=== PATIENT | male | born 2000 | race Two or more races ===

== ENCOUNTER 2021-06-16 21:43 | Emergency (ER) | payer SELFPAY ==
[~2021-06-16] VITALS: Ht 165.1 cm; Wt 71.0 kg
[2021-06-16 21:47] VITALS: BP 141/72
[2021-06-16] MEDS ORDERED: IBUP-1007 PO (22:08)
[2021-06-16] MEDS ORDERED: CYCL5TAB PO (22:08)
--- NOTE | 2021-06-16 22:08 | PHYS DOC ---
Past Medical History Past Surgical History: No Surgical History Smoking Status: Never Smoker Alcohol Use: Occasionally General Adult EDM: Chief Complaint: BACK PAIN OR INJURY HPI: HPI: Patient is a 20 year old male who presents with 5 days of right flank pain only with movement. Patient states he does not remember injury or any heavy lifting. He denies chest pain, shortness of breath, fever, cough, abdominal pain, nausea, vomiting, diarrhea, trauma. Rates the pain a 5 out of 10. He states he has been taking Tylenol for not at home. No other past medical history. Review of Systems: Review of Systems: Constitutional: Denies fever or chills. [] Eyes: Denies change in visual acuity. [] HENT: Denies nasal congestion or sore throat. [] Respiratory: Denies cough or shortness of breath. [] Cardiovascular: Denies chest pain or edema. [] GI: Denies abdominal pain, nausea, vomiting, bloody stools or diarrhea. [] : Denies dysuria. [] Musculoskeletal: +Right flank back pain or denies joint pain. [] Integument: Denies rash. [] Neurologic: Denies headache, focal weakness or sensory changes. [] Endocrine: Denies polyuria or polydipsia. [] Lymphatic: Denies swollen glands. [] Psychiatric: Denies depression or anxiety. [] Heart Score: C/O Chest Pain: No Allergies: Allergies: Allergies Coded Allergies Type Severity Reaction Last Updated Verified No Known Drug Allergies 06/16/21 No Physical Exam: PE: Constitutional: Well developed, well nourished, no acute distress, non-toxic appearance. [] HENT: Normocephalic, atraumatic, bilateral external ears normal, oropharynx moist, no oral exudates, nose normal. [] Eyes: PERRLA, EOMI, conjunctiva normal, no discharge. [] Neck: Normal range of motion, no tenderness, supple, no stridor. [] Cardiovascular:Heart rate regular rhythm, no murmur [] Lungs & Thorax: Bilateral breath sounds clear to auscultation [] Abdomen: Bowel sounds normal, soft, no tenderness, no masses, no pulsatile masses. [] Skin: Warm, dry, no erythema, no rash. [] Back: No tenderness, no CVA tenderness. Right flank pain with movement [] Extremities: No tenderness, no cyanosis, no clubbing, ROM intact, no edema. [] Neurologic: Alert and oriented X 3, normal motor function, normal sensory function, no focal deficits noted. [] Psychologic: Affect normal, judgement normal, mood normal. [] Current Patient Data: Vital Signs: Vital Signs Date Time Temp Pulse Resp B/P (MAP) Pulse Ox O2 Delivery O2 Flow Rate FiO2 06/16/21 21:47 98.7 78 16 141/72 (95) 96 Room Air 98.7 EKG: EKG: [] Radiology/Procedures: Radiology/Procedures: [] Course & Med Decision Making: Course & Med Decision Making Pertinent Labs and Imaging studies reviewed. (See chart for details) See HPI. Alert and oriented x4. Speaks in full clear sentences. Ambulatory with a steady gait. Denies any urinary symptoms or blood in his urine. No CVA tenderness. Abdomen is soft and nontender. Lungs are clear all station all lobes. Vital signs are within normal limits. Wells 0. PERC 0. No focal bony spinal tenderness. No bruising to his back. Patient will get a muscle relaxer and ibuprofen to take at home. He will follow up with his primary care physician. [] Heri Disclaimer: Dragon Disclaimer: This electronic medical record was generated, in whole or in part, using a voice recognition dictation system. Departure Departure Impression: Primary Impression: Musculoskeletal back pain Disposition: HOME / SELF CARE / HOMELESS Condition: STABLE Patient Instructions: Muscle Strain Additional Instructions: Follow-up with a primary care provider if needed. Take ibuprofen for pain. You can also heat use a heating pad to the area. Try not to do any heavy lifting or carrying anything heavy especially on that side of your body. Drink plenty of fluids to stay hydrated. Take the muscle relaxer as it is prescribed as needed. The muscle relaxer can make you sleepy so do not drive, work or drink any alcohol on top of this. Scripts Cyclobenzaprine Hcl (CYCLOBENZAPRINE HCL) 5 Mg Tablet 1 TAB PO TID, #10 TAB Prov: MILTON HENSLEY [employer] 06/16/21 Ibuprofen (IBUPROFEN) 600 Mg Tablet 600 MG PO PRN Q6HRS PRN for INFLAMMATION, #30 TAB Prov: MILTON HENSLEY [employer] 06/16/21 MILTON HENSLEY APRN Jun 16, 2021 22:08
== END 2021-06-16 22:21 | disposition home or self-care (01) ==
LOC: ER 21:43
DX: M54.89 Other dorsalgia (principal); R10.9 Unspecified abdominal pain
CPT/HCPCS: 99283